=== PATIENT | male | born 1985 | race African-American/Black ===

== ENCOUNTER 2019-04-11 01:38 | Emergency (ER) | payer MEDICAID, OTHER ==
[~2019-04-11] VITALS: Ht 193 cm; Wt 124.7 kg
[2019-04-11 03:50] VITALS: BP 143/83
== END 2019-04-11 05:51 | disposition home or self-care (01) ==
LOC: EDBD 01:38 → ER 01:42
DX: J06.9 Acute upper respiratory infection, unspecified (principal)